=== PATIENT | female | born 1965 | race Caucasian/White ===

== ENCOUNTER 2018-11-28 06:32 | Day surgery (SDC) | payer MEDICARE, MEDICAID ==
--- NOTE | 2018-11-24 13:34 | EKG REPORT ---
SEVERITY:- BORDERLINE ECG - SINUS RHYTHM LVH BY VOLTAGE CONSIDER ANTERIOR INFARCT : Confirmed by: Binh Winter MD 24-Nov-2018 13:33:39
[~2018-11-28 06:32] MED LIST: LACTATED RINGERS 1000 ML IV PRN; LIDOCAINE 0.5% INJ-PF (5 MG/ML) 50 ML SDV SUBCUT PRN
[2018-11-28 07:08] LABS: APPEARANCE,URINE CLOUDY; BILIRUBIN,URINE NEGATIVE (NEGATIVE); COLOR,URINE YELLOW; GLUCOSE, URINE NEGATIVE (NEGATIVE); KETONES,URINE NEGATIVE (NEGATIVE); LEUKOCYTE ESTERASE,URINE NEGATIVE (NEGATIVE); NITRITE,URINE NEGATIVE (NEGATIVE); PROTEIN,URINE NEGATIVE (NEGATIVE); URINE SPECIFIC GRAVITY 1.026; UROBILINOGEN,URINE NEGATIVE mg/dL (<2.0)
[2018-11-28] MEDS ORDERED: ALBUTEROL SULFATE 0.083% NEB 2.5 MG/3 ML AMPUL NEB ONE (07:52)
[2018-11-28 08:06] LABS: HEMATOCRIT 30.9 % (36.0-47.0); HEMOGLOBIN 10.3 g/dL (12.0-15.5); MEAN CORPUSCULAR HEMOGLOBIN 23.6 pg (27.0-33.4); MEAN CORPUSCULAR HGB CONC 33.4 g/dL (32.0-36.0); MEAN CORPUSCULAR VOLUME 71 fl (80-97); PLATELET COUNT 287 10^3/uL (150-450); RED BLOOD COUNT 4.36 10^6/uL (3.72-5.28); RED CELL DISTRIBUTION WIDTH 17.2 % (11.5-14.0); WHITE BLOOD COUNT 5.8 10^3/uL (4.0-10.5)
[2018-11-28 08:13] LABS: INTERNATIONAL RATION (INR) 0.92; PROTHROMBIN TIME 12.8 SEC (11.4-15.4)
[2018-11-28 08:14] LABS: PARTIAL THROMBOPLASTIN TIME 27.5 SEC (23.5-35.8)
[2018-11-28] MEDS ORDERED: BUPIVACAINE HCL 0.5%-EPI 1:200000 INJ/PF 30 ML VIAL ONE (08:27)
[2018-11-28] MEDS ORDERED: LIDOCAINE 1% INJ-PF (10 MG/ML) 30 ML SDV ONE (08:27)
[2018-11-28] MEDS ORDERED: SODIUM BICARBONATE 4.2% INJ (2.5 MEQ/5 ML) VIAL ONE (08:27)
--- NOTE | 2018-11-28 08:32 | RADIOLOGY REPORT (SQ) ---
EXAM DESCRIPTION: CHEST SINGLE VIEW COMPLETED DATE/TIME: 11/28/2018 7:37 am REASON FOR STUDY: surgery COMPARISON: None. EXAM PARAMETERS: NUMBER OF VIEWS: One view. TECHNIQUE: Single frontal radiographic view of the chest acquired. RADIATION DOSE: NA LIMITATIONS: None. FINDINGS: LUNGS AND PLEURA: No opacities, masses or pneumothorax. No pleural effusion. MEDIASTINUM AND HILAR STRUCTURES: No masses. Contour normal. HEART AND VASCULAR STRUCTURES: Heart normal in size. Normal vasculature. BONES: No acute findings. HARDWARE: None in the chest. OTHER: Neurostimulator catheter. IMPRESSION: 1. NO ACUTE RADIOGRAPHIC FINDING IN THE CHEST. TECHNICAL DOCUMENTATION: JOB ID: [id number] [employer]- All Rights Reserved Reading location - IP/workstation name: [email or web address]
[2018-11-28] MEDS ORDERED: MIDAZOLAM 2 MG/2 ML INJ ONE (08:47)
[2018-11-28] MEDS ORDERED: FENTANYL CITRATE INJ/PF 100 MCG/2 ML AMPUL ONE (08:47)
[2018-11-28] MEDS ORDERED: PROPOFOL INJ 200 MG/20 ML VIAL IV ONE (08:48)
[2018-11-28] MEDS ORDERED: CLINDAMYCIN 600 MG/D5W RTU 600 MG/50 ML RTUPB IV ONE (09:13)
[2018-11-28] MEDS ORDERED: PROMETHAZINE HCL INJ 25 MG/1 ML VIAL IV PRN ×2 (09:48)
[2018-11-28] MEDS ORDERED: MORPHINE SULFATE 10 MG/ML INJ IV PRN (09:48)
[2018-11-28] MEDS ORDERED: FENTANYL CITRATE INJ/PF 100 MCG/2 ML AMPUL IV PRN ×3 (09:48)
[2018-11-28] MEDS ORDERED: MEPERIDINE HCL/PF INJ 25 MG/1 ML DISP.SYRIN IV PRN (09:48)
[2018-11-28] MEDS ORDERED: DIPHENHYDRAMINE HCL 50 MG/ML VIAL IV PRN (09:48)
[2018-11-28] MEDS ORDERED: CLINDAMYCIN PHOSPHATE INJ 300 MG/2 ML SDV ONE (10:28)
--- NOTE | 2018-11-28 11:08 | OPERATIVE REPORT E ---
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 OPERATIVE PROCEDURE: Revision/replacement spinal cord stimulator pulse generator and complex programming spinal cord pulse generator. SURGEON: RENETTA RAYA M.D. INDICATIONS: Depleted battery. COMPLICATIONS: None. BLOOD LOSS: Minimal. SPECIMENS REMOVED: None. ANESTHESIA: MAC. PROCEDURE NOTE: After obtaining informed consent and advising the patient of the risks and benefits, she was taken to the operating room suite and placed comfortably in the prone position. This was assessed visually and verbally. After comfort was assessed and MAC anesthesia was established, she was prepped with chlorhexidine with appropriate drying time over the effected regions. She was then draped. Using local anesthesia, 1% lidocaine with bicarb, the pulse generator site over the previous scar was infiltrated. The subcutaneous tissues and deep tissues were infiltrated as well. She tolerated this well. Sharp and blunt dissection were performed. The generator was removed without difficulty. The leads were disconnected. They were in good shape. All contacts were satisfactory. The leads were then connected to the new pulse generator and tested for impedance. All 16 electrodes worked satisfactorily. The wound was irrigated. The capsule was incised to facilitate placement of the new pulse generator. The wound was then closed after the irrigation. It should be noted that the labeling of the pulse generator was facing the skin. After closing the capsule with 2-0 Polysorb, the subcutaneous tissue was closed again with an inverted vertical mattress suture using the same, but this time 3-0 Polysorb. The skin came together quite nicely. This was sealed with Dermabond tape followed by Dermabond cement. When this was dry, Telfa and Tegaderm were placed. The patient was then taken to the PACU for further postoperative care and monitoring. DICTATING PHYSICIAN: RENETTA RAYA M.D. [id number] PHY#: [id number] ID: [id number] JOB#: [id number] ACCT: [id number] cc:RENETTA RAYA M.D. >
[2018-11-28] MEDS ORDERED: OXYCODONE HCL IR 5 MG TABLET PO PRN (11:14)
[2018-11-28] MEDS ORDERED: OXYCODONE HCL IR 5 MG TABLET ONE (11:26)
[2018-11-28 13:03] VITALS: BP 156/76
== END 2018-11-28 12:30 | disposition home or self-care (01) ==
LOC: OROUT 06:32
PROVIDERS: ATTEND Pain Medicine Interventional Pain Medicine
DX: M51.27 Other intervertebral disc displacement, lumbosacral region (principal); M54.17 Radiculopathy, lumbosacral region; G89.4 Chronic pain syndrome; F45.42 Pain disorder with related psychological factors; J44.9 Chronic obstructive pulmonary disease, unspecified; I10 Essential (primary) hypertension; F32.9 Major depressive disorder, single episode, unspecified; I25.2 Old myocardial infarction; E66.9 Obesity, unspecified; Z79.899 Other long term (current) drug therapy; Z87.891 Personal history of nicotine dependence; Z79.891 Long term (current) use of opiate analgesic; Z79.51 Long term (current) use of inhaled steroids; Z88.0 Allergy status to penicillin; Z88.5 Allergy status to narcotic agent; Z68.41 Body mass index [BMI] 40.0-44.9, adult
CPT/HCPCS: 63685; 93005; 36415; 85027; 85610; 85730; 81001; 71045; 93010; 94640; J2250; J3490 ×4; J3010; J2704; A9270 ×2; 1936